=== PATIENT | male | born 1955 | race Caucasian/White ===

== ENCOUNTER 2019-09-15 08:05 | Emergency (ER) | payer MEDICARE, SELFPAY ==
[2019-09-15 08:05] VITALS: BP 170/84; PULSE 61; RESP 18; TEMP 36.6; O2SAT 99
--- NOTE | 2019-09-15 08:27 | ED_ITS ---
HPI - Extremity Injury (Upper) General Chief Complaint: Wound/Laceration Stated Complaint: injured pointer finger left hand Time Seen by Provider: 09/15/19 08:11 Source: patient Mode of arrival: Ambulatory History of Present Illness HPI narrative: Patient here for injury to left index finger. Occurred 4:00 p.m. yesterday. [place] last night. Patient is right handed. Is not up-to-date with tetanus shot. No allergies to medications. Patient states he was using a machete to cut brush. Injured his left index finger at the tip. He was able to apply home remedy +dressing for bleeding controlled. Related Data Previous Rx's Medication Instructions Recorded cephalexin [Keflex] 500 mg PO TID #21 cap 09/15/19 Allergies Allergy/AdvReac Type Severity Reaction Status Date / Time No Known Drug Allergies Allergy Verified 09/15/19 08:15 Review of Systems Review of Systems Narrative: GENERAL: Denies chills, fatigue, malaise, fever, sweats. MUSCULOSKELETAL: denies weakness, joint pain, or bony pain.. Complaints finger pain at tip SKIN: Denies rash, skin lesions, or other PSYCHIATRIC: No concerning psychosocial issues ROS Unobtainable: All systems reviewed & are unremarkable except as noted in HPI and below Patient History Social History Smoking Status: Current some day smoker Smoking Status: Current some day smoker alcohol intake frequency: 0-2 drinks per day Substance Use Type: marijuana Exam Narrative Exam Narrative: GENERAL: patient appears stated age. Well-nourished, well- developed patient, in no distress, not toxic HEAD: Atraumatic. Normocephalic. EXTREMITIES: Examination left index finger there is partial amputation of the radial side of the index finger at the tip. This does involve the fingernail. 1/3 of the nail is absent. Based visualized. No bone injury seen. No tendon injury seen. Able to flex and extend at the MCP PIP and DIP joints. Finger warm and soft. Small capillary bleeding is that is controlled with pressure. Initial Vital Signs Initial Vital Signs: Vital Signs Temperature 97.9 F 09/15/19 08:05 Pulse Rate 61 09/15/19 08:05 Respiratory Rate 18 09/15/19 08:05 Blood Pressure 170/84 H 09/15/19 08:05 Pulse Oximetry 99 09/15/19 08:05 Course Orders Ordered: ED Orders 09/15/19 08:25 XR finger LT min 2V Stat Discontinued Medications Cephalexin HCl (Keflex) 500 mg PO NOW ONE Stop: 09/15/19 08:25 Last Admin: 09/15/19 08:37 Dose: 500 mg Documented by: BTONER Diphtheria/Tetanus/Acell Pertussis (Adacel) 0.5 ml IM .ONCE ONE Stop: 09/15/19 08:25 Last Admin: 09/15/19 08:37 Dose: 0.5 ml Documented by: BTONER Reevaluation(s) Reevaluation #1: Time 9:57 a.m. at time of discharge hemostasis attained using Surgicel and Kerlix dressing. Wound was cleaned with Hibiclens and normal saline. Consultations Consultation #1: Spoke with orthopedics Dr. Sheets agrees with treatment plan and follow-up. Call his office for office time. Vital Signs Vital signs: Vital Signs - 8 hr 09/15/19 08:05 Temperature 97.9 F Pulse Rate 61 Respiratory Rate 18 Blood Pressure 170/84 H Pulse Oximetry 99 MDM - Extremity Injury (Upper) Differential Diagnosis Differential diagnosis: Likely other (Partial finger amputation) Imaging Data X-ray left index finger: Radiologist's Impression: [address] [address] XRay Report Signed Patient: Liz Garcia#: [id number] : 3Acct:[id number] Age/Sex: 64 / MDate of Service: 09/15/19 Loc: ED Accession Number: [id number] Procedure: XR finger LT min 2V Ordering Provider: Cesar Nazario MD PROCEDURE: XR FINGER LT MIN 2V INDICATIONS: Trauma pain injury TECHNIQUE: AP hand, 2 views of the 2nd finger(s) acquired. COMPARISON: None. FINDINGS: Evaluation of fine detail is limited by overlying bandaging material. Bones: There is a tiny 1 mm chip fracture seen along the ulnar aspect of the proximal portion of the distal phalanx of the 2nd finger. To the limits of this study, no additional fractures are seen. Age-appropriate bony degenerative changes are seen. Soft tissues: Soft tissue irregularity is seen. IMPRESSION: Tiny chip fracture seen at the level of the distal interphalangeal joint of the 2nd finger. This is potentially remote. Soft tissue irregularity and bandaging material can be seen. Dictated by: Moises Randolph M.D. on 09/15/2019 at 8:07 Approved by: Moises Randolph M.D. on 09/15/2019 at 8:10 Discharge Plan Departure Patient Disposition: Home Clinical Impression: Partial traumatic amputation of finger through phalanx Qualifiers: Encounter type: initial encounter Qualified Code(s): S68.629A - Partial traumatic transphalangeal amputation of unspecified finger, initial encounter Instructions: DI for Wound Infection Activity Restrictions/Additional Instructions: Change dressing twice a day. May replace Surgicel dressing if continued bleeding. Call schedule [facility], Dr. Sheets, today, phone number [phone] or [phone], to be seen this week for recheck. Return if worse Prescriptions: New cephalexin [Keflex] 500 mg capsule 500 mg PO TID Qty: 21 RF: 0 Referrals: Donald Sheets MD [Physician] -
[2019-09-15] MEDS: cephALEXin 250 MG CAPSULE 500 MG PO (08:37)
[2019-09-15] MEDS: TET,DIPH,PERTUSS(ACELL),VAC/PF 0.5 ML SYRINGE IM (08:37)
--- NOTE | 2019-09-15 09:45 | PC.NURSE ---
dr. diaz doing wound care and wound dressing
== END 2019-09-15 10:11 | disposition home or self-care (01) ==
PROVIDERS: Emergency Provider Emergency Medicine
DX: S68.629A Partial traumatic transphalangeal amputation of unspecified finger, initial encounter (principal); W26.0XXA Contact with knife, initial encounter; Z23 Encounter for immunization
CPT/HCPCS: 73140; 90471; 99283; 99284; 90715

== ENCOUNTER → 2020-08-13 18:29 | Outpatient (ROUT) | payer OTHER, SELFPAY ==
[2020-08-13 19:13] LABS: Alanine Aminotransferase 54 IU/L (<50); Albumin 4.4 g/dL (3.5-5.0); Albumin Globulin Ratio 1.3 (1.0-2.8); Alkaline Phosphatase 75 U/L (38-126); Aspartate Aminotransferase 41 IU/L (17-59); BUN Creatinine Ratio 21.3 (6-22); Bilirubin Total 0.5 mg/dL (0.2-1.3); Blood Urea Nitrogen 13 mg/dL (9-20); Calcium 9.5 mg/dL (8.4-10.2); Carbon Dioxide 32 mmol/L (22-32); Chloride 104 mmol/L (98-107); Cholesterol 207 mg/dL (140-199); Estimated Glomerular Filt Rate > 60.0 mL/min (>60); Globulin 3.4 g/dL (1.7-4.1); Glucose 91 mg/dL (80-110); HDL Cholesterol 75 mg/dL (40-60); HEMOLYSIS < 15 (0-50); LDL Cholesterol Calculated 108 mg/dL (<100); Potassium 4.5 mmol/L (3.4-5.1); Sodium 141 mmol/L (137-145); Total Protein 7.8 g/dL (6.3-8.2); Triglycerides 118 mg/dL (35-150)
[2020-08-15 14:09] LABS: PSA Free % 17.9 % (.); PSA, Total 2.8 ng/mL (0.0-4.0)
== END ==
PROVIDERS: Visit Provider Internal Medicine
DX: Z12.5 Encounter for screening for malignant neoplasm of prostate (principal); I10 Essential (primary) hypertension
CPT/HCPCS: 80053; 80061; 84153; 84154

== ENCOUNTER → 2020-08-20 14:29 | Outpatient (CLI) | payer MEDICARE, SELFPAY ==
[2020-08-20] MEDS: COVID-19 VACC, Ad26(JANSSEN)/PF 0.5 ML IM (14:33)
== END ==
PROVIDERS: Visit Provider Internal Medicine
DX: Z23 Encounter for immunization (principal)
CPT/HCPCS: 0031A; 91303